=== PATIENT | female | born 1980 | race Caucasian/White ===

== ENCOUNTER 2018-05-17 21:45 | Emergency (ER) | payer SELFPAY ==
[~2018-05-17] VITALS: Ht 182.9 cm; Wt 90.7 kg
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
--- NOTE | 2018-05-17 22:14 | NUR ---
PT. HAS A HX OF STI, AND UTI
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
[2018-05-17 23:04] LABS: COLOR,URINE YELLOW
[2018-05-17 23:05] LABS: BACTERIA,URINE NEGATIVE /HPF; BILIRUBIN,URINE NEGATIVE (NEGATIVE); CLARITY,URINE CLEAR; GLUCOSE, URINE (UA) NEGATIVE (NEGATIVE); KETONES,URINE NEGATIVE (NEGATIVE); LEUKOCYTE ESTERASE ,URINE TRACE (NEGATIVE); NITRITE,URINE NEGATIVE (NEGATIVE); PH,URINE 6.5 (5-9); PROTEIN,URINE NEGATIVE (NEGATIVE); UROBILINOGEN,URINE 0.2 MG/DL (NORMAL)
[2018-05-17] MEDS ORDERED: KETOROLAC 15 MG/ML VIAL IVP ONE (23:15)
[2018-05-17] MEDS ORDERED: KETOROLAC 30 MG/ML VIAL ONE (23:29)
[2018-05-17] MEDS ORDERED: IOHEXOL 350 MG/ML 100 ML (OMNIPAQUE 350) VIAL IV ONE (23:45)
[2018-05-17] MEDS ORDERED: HOLD METFORMIN - RECEIVED CONTRAST 20 ML VIAL IV SCH (23:45)
[2018-05-17] MEDS ORDERED: CATHETER FLUSH 10 ML SYR IV PRN (23:45)
--- NOTE | 2018-05-18 00:23 | NUR ---
DOCTOR IN WITH THE PATIENT AT THIS TIME.
[2018-05-18] MEDS ORDERED: DEXAMETHASONE 10 MG/ML (DECADRON) 1 ML VIAL IV STA (00:35)
[2018-05-18] MEDS ORDERED: cefTRIAXone FOR IV USE 250 MG in SYRINGE-IVPB 1 SYRINGE IV STA (00:35)
[2018-05-18] MEDS ORDERED: fentaNYL INJECTION 100 MCG/2 ML AMP IVP ONE (00:45)
[2018-05-18] MEDS ORDERED: AZITHROMYCIN 250 MG TAB (ZITHROMAX) PO ONE (00:45)
[2018-05-18] MEDS ORDERED: DICL50TA4 PO (00:48)
[2018-05-18] MEDS ORDERED: cefTRIAXone 250 MG/ML vial (IM ONLY) ONE (00:57)
[2018-05-18 01:34] VITALS: BP 124/70
--- NOTE | 2018-05-18 06:22 | Diagnostic Imaging Report ---
PROCEDURE: CT abdomen and pelvis with contrast. TECHNIQUE: Multiple contiguous axial images were obtained through the abdomen and pelvis after administration of intravenous contrast. Auto Exposure Controls were utilized during the CT exam to meet ALARA standards for radiation dose reduction. INDICATION: Abdominal pain and pelvic pain COMPARISON: None FINDINGS: The lung bases are clear, with mild motion artifact present. The heart is normal in size. No focal hepatic lesions are seen. The spleen is normal. The pancreas is normal. The adrenal glands are normal. The kidneys appear normal with no hydronephrosis. The bowel loops are nondistended without evidence of obstruction. The appendix is normal. No lymphadenopathy is seen. Clips are noted in the pelvis. There are 2 left ovarian cysts, which in total measure 4.6 x 3.4 cm in size. No free fluid or free air seen. No acute osseous abnormalities seen. IMPRESSION: 1. Two left ovarian cysts measuring up to 4.6 cm in size. 2. No evidence of obstruction. No free fluid or free air. Dictated by: Dictated on workstation # [id number]
== END 2018-05-18 01:47 | disposition home or self-care (01) ==
LOC: ER FS 21:47
DX: N83.202 Unspecified ovarian cyst, left side (principal); Z87.448 Personal history of other diseases of urinary system
CPT/HCPCS: 36415; 74177; 81000; 84703; 87088; 87491; 87591